=== PATIENT | female | born 1970 ===

== ENCOUNTER 2023-05-06 09:05 | Emergency (ER) | payer OTHER ==
[2023-05-06] MEDS ORDERED: Ciprofloxacin 0.3% Ophth Soln 2.5 ML Bottle ONE (09:30)
== END 2023-05-06 09:40 | disposition home or self-care (01) ==
LOC: LB.ED 09:05
DX: H10.9 Unspecified conjunctivitis (principal); I10 Essential (primary) hypertension
CPT/HCPCS: 99283; A9270-GY